=== PATIENT | male | born 1950 | race Caucasian/White ===

== ENCOUNTER → 2017-03-21 | Outpatient (CLI) | payer OTHER ==
[~2017-03-21] MED LIST: ALTACE5 MG PO; ASPIRIN E.C. 8181 MG PO; CLOPIDOGREL; DOXYCYCLINE HY100 MG PO; FLEXERIL10 MG PO; LASIX40 MG PO; LISINOPRIL10 MG PO; NORCO 325 MG-51 TAB PO; POTASSIUM20 MEQ PO; REQUIP 1MG T1 MG/TAB PO; SILDENAFIL; ULTRAM50 MG; VYTORIN PO; ZOCOR40 MG PO
== END ==
LOC: COL.RAD 15:18
DX: Z01.89 Encounter for other specified special examinations (principal)